=== PATIENT | male | born 1970 | race Caucasian/White ===

== ENCOUNTER 2023-04-21 18:44 | Emergency (ER) | payer MEDICAID, OTHER ==
[~2023-04-21] VITALS: Ht 180.3 cm; Wt 90.7 kg
[2023-04-21] MEDS ORDERED: LISI40TA13 PO (19:20)
[2023-04-21] MEDS ORDERED: PARO-142 PO (19:20)
[2023-04-21] MEDS ORDERED: LEVO75TA7 PO (19:20)
[2023-04-21] MEDS ORDERED: ROSU40TA PO (19:20)
[2023-04-21] MEDS ORDERED: ACET1TAB23 PO (19:54)
[2023-04-21 20:21] VITALS: BP 141/99; TEMP 98.2; O2SAT 97
== END 2023-04-21 20:15 | disposition home or self-care (01) ==
LOC: ER 18:49
DX: M25.552 Pain in left hip (principal); E78.5 Hyperlipidemia, unspecified; F17.210 Nicotine dependence, cigarettes, uncomplicated; Z88.0 Allergy status to penicillin; Z79.899 Other long term (current) drug therapy
CPT/HCPCS: A4663

== ENCOUNTER 2023-08-21 17:45 | Emergency (ER) | payer BC, OTHER ==
[~2023-08-21] VITALS: Ht 180.3 cm; Wt 90.7 kg
[~2023-08-21 17:45] MED LIST: ACET1TAB23 PO; LEVO75TA7 PO; LISI40TA13 PO; PARO-142 PO; ROSU40TA PO
[2023-08-21] MEDS ORDERED: IBUPROFEN 800 MG TABLET ONE (19:12)
[2023-08-21] MEDS ORDERED: IBUPROFEN 800 MG TABLET PO ONE (19:15)
[2023-08-21 19:32] LABS: BASOPHILS # (AUTO) 0.1 K/UL (0.0-0.2); BASOPHILS % (AUTO) 0.9 % (0.0-2.0); EOSINOPHILS # (AUTO) 0.3 K/uL (0.0-0.7); EOSINOPHILS % (AUTO) 2.9 % (0.0-7.0); HEMATOCRIT 47.2 % (36.7-47.1); HEMOGLOBIN 15.8 g/dL (12.5-16.3); LYMPHOCYTES # (AUTO) 2.3 K/uL (0.8-4.8); LYMPHOCYTES % (AUTO) 25.9 % (20.5-51.5); MEAN CORPUSCULAR HEMOGLOBIN 30.6 uug (23.8-33.4); MEAN CORPUSCULAR HGB CONC 34 g/dL (32.5-36.3); MONOCYTES # (AUTO) 0.9 K/uL (0.1-1.30); MONOCYTES % (AUTO) 10.2 % (0.0-11.0); NEUTROPHILS # (AUTO) 5.4 K/uL (1.8-8.9); NEUTROPHILS % (AUTO) 60.1 % (38.5-71.5); PLATELET COUNT (AUTO) 280 K/uL (152-348); RED BLOOD CELL COUNT(AUTO) 5.19 MIL/uL (4.06-5.63); RED CELL DISTRIBUTION WIDTH 14.2 % (12.1-16.2); WHITE BLOOD COUNT (AUTO) 8.9 K/uL (3.6-10.2)
[2023-08-21 19:39] LABS: DIFFERENTIAL COMMENT 1
[2023-08-21 20:04] LABS: ALBUMIN 3.8 g/dL (3.4-5.0); BILIRUBIN,DIRECT 0.1 mg/dL (0.0-0.2); BILIRUBIN,TOTAL 0.2 mg/dL (0.2-1.0); CALCIUM 9.2 mg/dL (8.5-10.1); CREATININE 1.4 mg/dL (0.6-1.3); POTASSIUM 4.2 mmol/L (3.5-5.1); TOTAL PROTEIN, SERUM 7.7 g/dL (6.4-8.2)
[2023-08-21] MEDS ORDERED: HYDR-3976 PO (20:50)
[2023-08-21 21:22] VITALS: BP 122/77; TEMP 97.7; O2SAT 98
[2023-08-22] MEDS ORDERED: HYDR-3976 PO (22:55)
== END 2023-08-21 21:24 | disposition home or self-care (01) ==
LOC: ER 17:45
DX: M51.36 Other intervertebral disc degeneration, lumbar region (principal); M54.16 Radiculopathy, lumbar region; N28.9 Disorder of kidney and ureter, unspecified; E03.9 Hypothyroidism, unspecified; E78.5 Hyperlipidemia, unspecified; F17.210 Nicotine dependence, cigarettes, uncomplicated; Z88.0 Allergy status to penicillin; Z79.899 Other long term (current) drug therapy
CPT/HCPCS: 36415; 72131; 85025; 85651; 85730; 86140; A4606; A4663

== ENCOUNTER 2024-02-23 18:46 | Emergency (ER) | payer SELFPAY ==
[~2024-02-23] VITALS: Ht 180.3 cm; Wt 89.8 kg
[~2024-02-23 18:46] MED LIST changes: -ACET1TAB23 PO; +HYDR-3976 PO
[2024-02-23 18:55] VITALS: O2SAT 100
== END 2024-02-23 22:10 | disposition left against medical advice (07) ==
LOC: ER 18:46
DX: R51.9 Headache, unspecified (principal); Z53.21 Procedure and treatment not carried out due to patient leaving prior to being seen by health care provider
CPT/HCPCS: A4606; A4663